=== PATIENT | female | born 1995 | race Caucasian/White ===

== ENCOUNTER 2017-08-03 00:53 | Emergency (ER) | payer SELFPAY ==
[~2017-08-03] VITALS: Ht 157.5 cm; Wt 60.0 kg
[2017-08-03 00:58] VITALS: BP 121/62; PULSE 103; RESP 16; TEMP 98.6; O2SAT 98
[2017-08-03] MEDS ORDERED: PROZ20CA11 PO (01:03)
--- NOTE | 2017-08-03 01:23 | PD ---
HPI Chief Complaint: Alcohol/Drug Intoxication Time Seen by Provider: 01:15 Travel History International Travel<30 days: No Contact w/Intl Traveler<30days: No Traveled to known affect area: No History of Present Illness HPI Examined in the presence of a female nurse. 22-year-old female presents for evaluation of intoxication. The patient was at a local club where she drank "a lot" of alcohol. At some point the police brought her here for evaluation of this intoxication. The patient has no medical complaints and feels that this is a waste of time. She denies any injuries. She reports that she is currently on vacation from [place], she reports that she drove down here 2 days ago with some friends. She believes that maybe 1 of her friends could come and pick her up tonight. She has no other complaints. [facility] Past Medical History Anxiety: Yes Depression: Yes ?: Not Social History Alcohol Use: Yes Tobacco Use: No Substance Use: No Allergies-Medications (Allergen,Severity, Reaction): Coded Allergies: No Known Allergies (Unverified , 08/03/17) Reported Meds & Prescriptions Reported Meds & Active Scripts Active Reported Prozac (Fluoxetine HCl) 20 Mg Cap 20 Mg PO DAILY Review of Systems Except as stated in HPI: all other systems reviewed are Neg Physical Exam Narrative GENERAL: This is a well-developed well-nourished female who is intoxicated. SKIN: Warm and dry. HEAD: Atraumatic. Normocephalic. EYES: Pupils equal and round. No scleral icterus. No injection or drainage. ENT: No nasal bleeding or discharge. Mucous membranes pink and moist. NECK: Trachea midline. No JVD. CARDIOVASCULAR: Regular rate and rhythm. No murmur appreciated. RESPIRATORY: No accessory muscle use. Clear to auscultation. Breath sounds equal bilaterally. GASTROINTESTINAL: Abdomen soft, non-tender, nondistended. Hepatic and splenic margins not palpable. MUSCULOSKELETAL: No obvious deformities. No clubbing. No cyanosis. No edema. NEUROLOGICAL: Awake and alert. No obvious cranial nerve deficits. Motor grossly within normal limits. Slurred speech. Data Data Last Documented VS Vital Signs Date Time Temp Pulse Resp B/P (MAP) Pulse Ox O2 Delivery O2 Flow Rate FiO2 08/03/17 00:58 98.6 103 16 121/62 (81) 98 MDM Medical Decision Making Medical Screen Exam Complete: Yes Emergency Medical Condition: Yes Medical Record Reviewed: Yes Differential Diagnosis Alcohol intoxication, closed head injury, polysubstance abuse Narrative Course 22-year-old female presents after becoming intoxicated publicly. She has no evidence of trauma. She will remain here until she is clinically sober or able to obtain a sober ride home. Stable for discharge. Diagnosis Primary Impression: Alcohol intoxication Additional Instructions: If you must drink alcohol, do so in moderation. Med/Other Pt SpecificInfo: No Change to Meds Disposition: 01 DISCHARGE HOME Condition: Stable Renny Pineda Aug 03, 2017 01:23
== END 2017-08-03 01:36 | disposition home or self-care (01) ==
LOC: NEPD 00:53
DX: F10.129 Alcohol abuse with intoxication, unspecified (principal)
CPT/HCPCS: 99281